=== PATIENT | female | born 1995 | race Caucasian/White ===

== ENCOUNTER 2019-06-26 11:29 | Emergency (ER) | payer MEDICAID ==
[~2019-06-26] VITALS: Ht 160 cm; Wt 59.1 kg
[2019-06-26 11:43] VITALS: BP 130/82
[2019-06-26] MEDS ORDERED: NAPR-56 PO (12:29)
[2019-06-26] MEDS ORDERED: PENI250T2 PO (12:29)
== END 2019-06-26 12:44 | disposition home or self-care (01) ==
LOC: ER 11:29
DX: K08.89 Other specified disorders of teeth and supporting structures (principal); Z79.899 Other long term (current) drug therapy
CPT/HCPCS: 99283

== ENCOUNTER 2020-03-04 19:17 | Emergency (ER) | payer MEDICAID ==
[~2020-03-04] VITALS: Ht 160 cm; Wt 55.0 kg
[2020-03-04] MEDS ORDERED: CEPH-572 PO (20:47)
[2020-03-04] MEDS ORDERED: TETanus/Pertussis (Acell)/Diphther VAC/PF (Tdap-Adult) 0.5ml syringe IMVAC ONE (20:50)
== END 2020-03-04 21:17 | disposition home or self-care (01) ==
LOC: ER 19:18
DX: S81.812D Laceration without foreign body, left lower leg, subsequent encounter (principal); Z79.899 Other long term (current) drug therapy; W22.8XXD Striking against or struck by other objects, subsequent encounter
CPT/HCPCS: 90471; 90715; 99283

== ENCOUNTER 2020-03-06 12:14 | Emergency (ER) | payer MEDICAID ==
[~2020-03-06] VITALS: Ht 160 cm; Wt 56.8 kg
[~2020-03-06 12:14] MED LIST: CEPH-572 PO
[2020-03-06 12:16] VITALS: BP 119/69
== END 2020-03-06 12:44 | disposition home or self-care (01) ==
LOC: ER 12:14
DX: Z00.00 Encounter for general adult medical examination without abnormal findings (principal); Z79.899 Other long term (current) drug therapy
CPT/HCPCS: 99281